=== PATIENT | female | born 1995 | race American Indian/Alaskan Native ===

== ENCOUNTER 2021-03-19 12:57 | Emergency (ER) | payer OTHER ==
[2021-03-19 14:24] VITALS: BP 143/76
[2021-03-19 16:48] LABS: Basophils % (Auto) 0.6 % (0.0-1.8); Eosinophils # (Auto) 0.2 K/mm3 (0.0-0.4); Eosinophils % (Auto) 3.2 % (0.0-4.3); Hematocrit 39.2 % (30.3-42.9); Hemoglobin 12.7 gm/dl (10.1-14.3); Lymphocytes # (Auto) 2.5 K/mm3 (1.2-5.4); Mean Corpuscular HGB Conc 32 % (30-34); Mean Corpuscular Volume 85 fl (79-97); Monocytes # (Auto) 0.4 K/mm3 (0.0-0.8); Monocytes % (Auto) 7.5 % (0.0-7.3); Platelet Count 263 K/mm3 (140-440); Red Blood Count 4.61 M/mm3 (3.65-5.03); Red Cell Distribution Width 16.1 % (13.2-15.2)
[2021-03-19 16:59] LABS: Alanine Aminotransferase 14 units/L (7-56); Albumin 4.3 g/dL (3.9-5); Blood Urea Nitrogen 11 mg/dL (7-17); Hemolysis Index 96
[2021-03-19 17:29] LABS: BUN/Creatinine Ratio 18
[2021-03-19 17:38] LABS: Bilirubin,Urine NEG (Negative); Blood,Urine NEG (Negative); Color,Urine Yellow (Yellow); Mucus,Urine 1+ /HPF; Protein,Urine <15 mg/dL mg/dL (Negative); Urobilinogen,Urine < 2.0 mg/dL (<2.0)
--- NOTE | 2021-03-19 18:52 | Emergency Department Report ---
ED Female HPI - General Chief complaint: Abdominal Pain Stated complaint: PELVIC PAIN AFTER ECTOPIC Time Seen by Provider: 03/19/21 16:19 Source: patient Mode of arrival: Ambulatory Limitations: No Limitations - History of Present Illness Initial comments: Patient is a 25-year-old female presents emergency room with complaints of pelvic pain that has been ongoing since December. She states that in December she was diagnosed with ectopic in [place] and was given methotrexate. She states that she went to the hospital once for repeat hCG but never had a follow-up with [facility] and never had a repeat ultrasound. She states since then she has had continued pelvic pain. She states that she also has some constipation. She is able to pass gas and tolerate p.o. intake and has no vomiting. She states that she only used one laxative without much relief. She denies any fever, vomiting, diarrhea, vaginal bleeding, abnormal vaginal disc harge, dysuria, urinary symptoms, itching, burning, back pain. Past medical history of ovarian cyst. No allergies to medications. /P: 0/A: 4 - Related Data Previous Rx's Medication Instructions Recorded Last Taken Type Docusate Sodium [Colace] 100 mg PO BID PRN #20 capsule 03/19/21 Unknown Rx Naproxen [EC-Naprosyn] 500 mg PO BID PRN #14 tablet. 03/19/21 Unknown Rx Polyethylene Glycol 3350 [Miralax] 17 gm PO DAILY #1 powder 03/19/21 Unknown Rx Allergies Allergy/AdvReac Type Severity Reaction Status Date / Time No Known Allergies Allergy Unverified 03/19/21 14:24 ED Review of Systems ROS: Stated complaint: PELVIC PAIN AFTER ECTOPIC Other details as noted in HPI Comment: All other systems reviewed and negative ED Past Medical Hx - Past Medical History Previous Medical History?: No - Surgical History Past Surgical History?: No - Social History Smoking Status: Never Smoker Substance Use Type: None - Medications Home Medications: Home Medications Medication Instructions Recorded Confirmed Last Taken Type Docusate Sodium [Colace] 100 mg PO BID PRN #20 capsule 03/19/21 Unknown Rx Naproxen [EC-Naprosyn] 500 mg PO BID PRN #14 tablet. 03/19/21 Unknown Rx Polyethylene Glycol 3350 [Miralax] 17 gm PO DAILY #1 powder 03/19/21 Unknown Rx ED Physical Exam - General Limitations: No Limitations General appearance: alert, in no apparent distress - Head Head exam: Present: atraumatic, normocephalic - Eye Eye exam: Present: normal appearance - ENT ENT exam: Present: mucous membranes moist - Respiratory Respiratory exam: Present: normal lung sounds bilaterally. Absent: respiratory distress, wheezes, rales, rhonchi, stridor, chest wall tenderness, accessory muscle use, decreased breath sounds, prolonged expiratory - Cardiovascular Cardiovascular Exam: Present: regular rate, normal rhythm, normal heart sounds. Absent: systolic murmur, diastolic murmur, rubs, gallop - GI/Abdominal GI/Abdominal exam: Present: soft, normal bowel sounds. Absent: distended, tenderness, guarding, rebound, rigid - Back Exam Back exam: Absent: CVA tenderness (R), CVA tenderness (L) - Neurological Exam Neurological exam: Present: alert, oriented X3 - Psychiatric Psychiatric exam: Present: normal affect, normal mood - Skin Skin exam: Present: warm, dry, intact ED Course Vital Signs 03/19/21 14:19 Temperature 97.9 F Pulse Rate 68 Respiratory 18 Rate Blood Pressure 143/76 [Right] O2 Sat by Pulse 98 Oximetry ED Medical Decision Making - Lab Data Result diagrams: 03/19/21 16:25 03/19/21 16:25 Lab Results 03/19/21 03/19/21 03/19/21 Range/Units 15:40 16:05 16:25 WBC 5.9 (4.5-11.0) K/mm3 RBC 4.61 (3.65-5.03) M/mm3 Hgb 12.7 (10.1-14.3) gm/dl Hct 39.2 (30.3-42.9) % MCV 85 (79-97) fl MCH 27 L (28-32) pg MCHC 32 (30-34) % RDW 16.1 H (13.2-15.2) % Plt Count 263 (140-440) K/mm3 Lymph % (Auto) 42.0 H (13.4-35.0) % [place] % (Auto) 7.5 H (0.0-7.3) % Eos % (Auto) 3.2 (0.0-4.3) % Baso % (Auto) 0.6 (0.0-1.8) % Lymph # (Auto) 2.5 (1.2-5.4) K/mm3 [place] # (Auto) 0.4 (0.0-0.8) K/mm3 Eos # (Auto) 0.2 (0.0-0.4) K/mm3 Baso # (Auto) 0.0 (0.0-0.1) K/mm3 Seg Neutrophils % 46.7 (40.0-70.0) % Seg Neutrophils # 2.7 (1.8-7.7) K/mm3 Sodium (137-145) mmol/L Potassium (3.6-5.0) mmol/L Chloride (98-107) mmol/L Carbon Dioxide (22-30) mmol/L Anion Gap mmol/L BUN (7-17) mg/dL Creatinine (0.6-1.2) mg/dL Estimated GFR ml/min BUN/Creatinine Ratio % Glucose (65-100) mg/dL Calcium (8.4-10.2) mg/dL Total Bilirubin (0.1-1.2) mg/dL AST (5-40) units/L ALT (7-56) units/L Alkaline Phosphatase (35-129) units/L Total Protein (6.3-8.2) g/dL Albumin (3.9-5) g/dL Albumin/Globulin Ratio % Lipase (13-60) units/L HCG, Quant < 2 (0-4) mIU/mL Urine Color Yellow (Yellow) Urine Turbidity Clear (Clear) Urine pH 6.0 (5.0-7.0) Ur Specific [place] 1.021 (1.003-1.030) Urine Protein <15 mg/dl (Negative) mg/dL Urine Glucose (UA) Neg (Negative) mg/dL Urine Ketones Neg (Negative) mg/dL Urine Blood Neg (Negative) Urine Nitrite Neg (Negative) Urine Bilirubin Neg (Negative) Urine Urobilinogen < 2.0 (<2.0) mg/dL Ur Leukocyte Esterase Neg (Negative) Urine WBC (Auto) 1.0 (0.0-6.0) /HPF Urine RBC (Auto) 1.0 (0.0-6.0) /HPF U Epithel Cells (Auto) 3.0 (0-13.0) /HPF Urine Mucus 1+ /HPF /08/30 Range/Units 16:25 WBC (4.5-11.0) K/mm3 RBC (3.65-5.03) M/mm3 Hgb (10.1-14.3) gm/dl Hct (30.3-42.9) % MCV (79-97) fl MCH (28-32) pg MCHC (30-34) % RDW (13.2-15.2) % Plt Count (140-440) K/mm3 Lymph % (Auto) (13.4-35.0) % [place] % (Auto) (0.0-7.3) % Eos % (Auto) (0.0-4.3) % Baso % (Auto) (0.0-1.8) % Lymph # (Auto) (1.2-5.4) K/mm3 [place] # (Auto) (0.0-0.8) K/mm3 Eos # (Auto) (0.0-0.4) K/mm3 Baso # (Auto) (0.0-0.1) K/mm3 Seg Neutrophils % (40.0-70.0) % Seg Neutrophils # (1.8-7.7) K/mm3 Sodium 135 L (137-145) mmol/L Potassium 5.0 (3.6-5.0) mmol/L Chloride 99.2 (98-107) mmol/L Carbon Dioxide 24 (22-30) mmol/L Anion Gap 17 mmol/L BUN 11 (7-17) mg/dL Creatinine 0.6 (0.6-1.2) mg/dL Estimated GFR > 60 ml/min BUN/Creatinine Ratio 18 % Glucose 71 (65-100) mg/dL Calcium 9.0 (8.4-10.2) mg/dL Total Bilirubin 0.40 (0.1-1.2) mg/dL AST 24 (5-40) units/L ALT 14 (7-56) units/L Alkaline Phosphatase 73 (35-129) units/L Total Protein 7.8 (6.3-8.2) g/dL Albumin 4.3 (3.9-5) g/dL Albumin/Globulin Ratio 1.2 % Lipase 26 (13-60) units/L HCG, Quant (0-4) mIU/mL Urine Color (Yellow) Urine Turbidity (Clear) Urine pH (5.0-7.0) Ur Specific [place] (1.003-1.030) Urine Protein (Negative) mg/dL Urine Glucose (UA) (Negative) mg/dL Urine Ketones (Negative) mg/dL Urine Blood (Negative) Urine Nitrite (Negative) Urine Bilirubin (Negative) Urine Urobilinogen (<2.0) mg/dL Ur Leukocyte Esterase (Negative) Urine WBC (Auto) (0.0-6.0) /HPF Urine RBC (Auto) (0.0-6.0) /HPF U Epithel Cells (Auto) (0-13.0) /HPF Urine Mucus /HPF - Radiology Data Radiology results: report reviewed Ordering Physician: JAYY REID Date of Service: 03/19/21 Procedure(s): US pelvic complete Accession Number(s): [id number] cc: JAYY REID Pelvic Ultrasound HISTORY: pelvic pain, had ectopic in Dec 2020. TECHNIQUE: Grayscale and color imaging performed. COMPARISON: None FINDINGS: Uterus measures 6.5 x 3.7 x 5.0 cm with endometrial echo complex measuring 1.9 cm. The ovaries are both normal in size and appearance with preserved blood flow. There is trace simple pelvic free fluid. IMPRESSION: No acute abnormality identified. Slight prominence of the endometrial complex can be normal depending on stage in cycle. Correlate with history. Signer Name: Jamaal Amato MD Signed: 03/19/2021 6:55 PM Workstation Name: [id number] Transcribed By: JW Dictated By: Jamaal Amato MD Electronically Authenticated By: Jamaal Amato MD Signed Date/Time: 03/19/211854 DD/ 52 TD/TT: Print - Medical Decision Making Patient is a 25-year-old female presents emergency room with complaints of pelv ic pain that has been ongoing since December. She states that in December she was diagnosed with ectopic in [place] and was given methotrexate. She states that she went to the hospital once for repeat hCG but never had a follow-up with [facility] and never had a repeat ultrasound. She states since then she has had continued pelvic pain. She states that she also has some constipation. She is able to pass gas and tolerate p.o. intake and has no vomiting. She states that she only used one laxative without much relief. She denies any fever, vomiting, diarrhea, vaginal bleeding, abnormal vaginal discharge, dysuria, urinary symptoms, itching, burning, back pain. Past medical history of ovarian cyst. No allergies to medications. /P: 0/A: 4. Vitals are stable. Labs are normal. hCG quant is less than 2. UA is within normal limits. Pelvic ultrasound: IMPRESSION: No acute abnormality identified. Slight prominence of the endometrial complex can be normal depending on stage in cycle. Correlate with history. Discussed all results with patient. Patient declines pelvic examination and states that she is not concerned for STDs. Discussed the importance of [facility] follow-up regarding her pelvic pain. Patient has no obstructive symptoms. Advised patient Please take medication as prescribed. Follow-up with a primary care doctor. Follow-up with an [facility]. Return to emergency room for any new or worsening symptoms. Critical care attestation.: If time is entered above; I have spent that time in minutes in the direct care of this critically ill patient, excluding procedure time. ED Disposition Clinical Impression: Pelvic pain Constipation Qualifiers: Constipation type: unspecified constipation type Qualified Code(s): K59.00 - Constipation, unspecified Disposition: TO HOME OR SELFCARE Is pt being admited?: No Does the pt Need Aspirin: No Condition: Stable Instructions: High-Fiber Diet, Pelvic Pain, Female, [id number], Constipation, Adult, Abdominal Pain (ED) Additional Instructions: Please take medication as prescribed. Follow-up with a primary care doctor. Follow-up with an [facility]. Return to emergency room for any new or worsening symptoms. Prescriptions: Docusate Sodium [Colace] 100 mg PO BID PRN #20 capsule PRN Reason: constipation Naproxen [EC-Naprosyn] 500 mg PO BID PRN #14 tablet. PRN Reason: pain Polyethylene Glycol 3350 [Miralax] 17 gm PO DAILY #1 powder Referrals: PRIMARY CAREMD [Primary Care Provider] - 2-[address] [facility] [Provider Group] - 2-3 Days MIRANDA ESTEBAN MD [Staff Physician] - 2-3 Days Time of Disposition: 19:07 Print Language: KOREAN
--- NOTE | 2021-03-19 18:59 | Ultrasound Report ---
Pelvic Ultrasound HISTORY: pelvic pain, had ectopic in Dec 2020. TECHNIQUE: Grayscale and color imaging performed. COMPARISON: None FINDINGS: Uterus measures 6.5 x 3.7 x 5.0 cm with endometrial echo complex measuring 1.9 cm. The ovaries are both normal in size and appearance with preserved blood flow. There is trace simple p elvic free fluid. IMPRESSION: No acute abnormality identified. Slight prominence of the endometrial complex can be norm al depending on stage in cycle. Correlate with history. Signer Name: Jamaal Amato MD Signed: 03/19/2021 6:55 PM Workstation Name: [id number]
== END 2021-03-19 19:45 | disposition home or self-care (01) ==
LOC: ED 12:57
DX: K59.00 Constipation, unspecified (principal); R10.2 Pelvic and perineal pain; Z79.899 Other long term (current) drug therapy
CPT/HCPCS: 36415; 76856; 80053; 81001; 83690; 84702; 85025

== ENCOUNTER 2021-06-03 23:18 | Emergency (ER) | payer OTHER | END 2021-06-06 09:00 | LOC: ED 23:18 | DX: R10.9 Unspecified abdominal pain (principal); Z53.21 Procedure and treatment not carried out due to patient leaving prior to being seen by health care provider ==